=== PATIENT | female | born 1945 | race Caucasian/White ===

== ENCOUNTER → 2017-08-15 | Outpatient (CLI) | payer MEDICARE, OTHER ==
[~2017-08-15] MED LIST: ASPI-1441 PO; FLUT16SP20 NS; LEV75 PO; PHEN120S18 PO; THYROID MEDICATION
--- NOTE | 2017-08-15 10:29 | RADIOLOGY IMAGING REPORT ---
FACILITY: [facility] - [place] PATIENT NAME: Laury Acosta : 1945 MR: [id number] V: [id number] EXAM DATE: ORDERING PHYSICIAN: ALEJO LAWLER TECHNOLOGIST: Location: [facility] Patient: Laury Acosta : 1945 Visit/Account:[id number] Date of Sevice: 08/15/2017 DEXA Scan Clinical history: Osteoporosis screening. Comparison: 03/24/2014. LUMBAR SPINE: Bone mineral density (BMD) measured in the lumbar spine correlates with a T-score of -2.4 and a Z-sco re of -0.9 which is osteopenia as defined by the World Health Organization. Degenerative changes are present in the lumbar spine which may falsely increase bone density. The corresponding risk of frac ture in the lumbar spine is increased compared with a young adult reference population. Lumbar spine bone density is essentially unchanged compared to previous. LEFT FEMORAL NECK: Bone mineral density (BMD) measured in the femoral neck correlates with a T-score of -2.8 and a Z-sco re of -1.2 which is osteoporosis as defined by the World Health Organization. Bone mineral density (BMD) measured in the femoral neck region is 0.655 g/cm2. LEFT TOTAL HIP: Total hip bone mineral density (BMD) correlates with a T-score of -2.1 and a Z-score of -0.1 which is normal as defined by the World Health Organization. Total hip bone density has decreased by less t renteria 1% compared to previous. The corresponding risk of fracture in the hip is increased compared with a young adult [facility] IMPRESSION: 1. Lumbar spine: Osteopenia. Lumbar spine bone density is essentially unchanged compared to previo us. 2. Left femoral neck: Osteoporosis. 3. Left femoral neck: Bone Mineral Density is 0.655 g/cm2. 4. Left total hip: Osteopenia. Total hip bone density has decreased by less than 1% compared to pr evious. FRAX WHO Fracture Risk Assessment Tool link: <http://www.shef.ac.uk/FRAX/tool.jsp?locationValue=9> PLEASE NOTE: 1) The World Health Organization defines low BMD as follows: T-score Normal > -1 Osteopenia < -1 and > -2.5 Osteoporosis < -2.5 without fractures Established osteoporosis < -2.5 with fractures 2) In general, you may wish to consider: Diagnosis Treatment Follow-up DEXA Normal BMD Prevention 2-3 years Osteopenia Prevention/therapy 1-2 years Osteoporosis Therapy Yearly 3) Fracture risk estimated from the T-score is more accurate for vertebral fractures (often spontane ous) than for hip fractures. Report Dictated By: Jose Guzman MD at 08/15/2017 10:19 AM Report E-Signed By: Jose Guzman MD at 08/15/2017 10:24 AM WSN:[id number]
--- NOTE | 2017-08-16 08:37 | RADIOLOGY IMAGING REPORT ---
FACILITY: PATIENT NAME: MAREK GUZMÁN : [id number] MR: [id number] V: [id number] EXAM DATE: ORDERING PHYSICIAN: ALEJO LAWLER TECHNOLOGIST: Georgette Chua PROCEDURE:BILATERAL DIGITAL SCREENING MAMMOGRAM WITH CAD ASSISTED INTERPRETATION & 3D TOMOSYNTHESIS COMPARISON:Prior mammograms 02/15/16, 04/03/14, 03/24/14, 03/19/13, 03/12/12. INDICATIONS:SCREENING FINDINGS: Mildly heterogeneous fibroglandular tissue is seen throughout the breasts. The parenchymal pattern has remained stable allowing for difference in mammographic technique & patient positioning. There is no evidence of malignant appearing mass, malignant appearing calcifications or other secondary sign of malignancy in either breast. DIAGNOSTIC CATEGORY 1--NEGATIVE. RECOMMENDATIONS: ROUTINE MAMMOGRAM AND CLINICAL EVALUATION. IMPRESSION: BIRADS 1: Negative No significant abnormality is seen. Dictated by: Gail Unger M.D. on 08/15/2017 at 17:32 Transcribed by: ADRIEL on 08/16/2017 at 8:18 Approved by: Gail Unger M.D. on 08/16/2017 at 8:36 [facility]
== END ==
LOC: MAMO 02:19
PROVIDERS: ATTEND Obstetrics & Gynecology
DX: Z13.820 Encounter for screening for osteoporosis (principal); Z12.31 Encounter for screening mammogram for malignant neoplasm of breast; M85.88 Other specified disorders of bone density and structure, other site; M81.0 Age-related osteoporosis without current pathological fracture
CPT/HCPCS: 77063; 77067; 77080

== ENCOUNTER 2017-10-04 13:22 | Outpatient (RCR) | payer MEDICARE, OTHER ==
[~2017-10-04] VITALS: Ht 154.9 cm; Wt 70.3 kg
--- NOTE | 2017-10-04 15:16 | Medical Nutrition Therapy ---
Nutrition Anthropometrics Height (Inches): 61 Weight (Pounds): 155 (stated) BMI: 29.3 Avery Nutrition Score: Avery Nutrition Risk Score: Dietary Referral Nutrition Risk Factors: Nutrition Risk Comment: Nutrition/Food History Breakfast: 1 egg, 1/2 lg bagel, 1/2 banana, 1/2c blueberries Lunch: cheese & crackers or veggie and PB or 2 oreos and fruit Dinner: 3-4 oz grilled meat- usually beef, veg, 1/2 c starch Nutritional Education Nutrition Education Topic: Diabetic Nutrition Learning Readiness: Interested Teaching Methods: Discussion, Handout, Demonstration Response to Teaching: Verbalize understanding Teaching Recipient: Patient, Significant Other Nutrition Counseling: Pt has A1C of 6.1. Discussed how to maintain or decrease A1C. Pt states occasionally will exercise but no routine weekly exercise. BMI in upper end of overwt range. Encourged 7-10% wt loss and add exercise with goal of minimum of 150min/week. Pt states past 6 months has been stressful r/t family illness and deaths. Discussed how stress can rainse BG. Discussed stress relief with exercise, meditation,yoga. Pt had HDL within desired range but high LDL and cholesterol. Incorportated heart healthy diet with diabetic. Provided meal plan of 1200- 1400 kcal that should help with wt loss. Limiting CHO to 2 sevings/meal, 3-4 oz lean meat, 1 mono or polyunsatureded fat/meal and unlimited veg. Discussed diabetic classes but pt will try meal plan first. Nutrition Monitoring & Eval RD Patient Assessment Time: [address] Assessment Type: RD Education Nutritional Comment: Provided 60 minutes MNT for prediabetes jerad hypercholesterolemia dx. Copies To Copies to: PAULETTE TAVARES BETH Oct 04, 2017 15:16
== END 2017-10-19 07:55 | disposition home or self-care (01) ==
LOC: DIET 13:22
PROVIDERS: ATTEND Physician Assistant
DX: R73.09 Other abnormal glucose (principal)
CPT/HCPCS: 97802

== ENCOUNTER → 2018-11-12 | Outpatient (CLI) | payer MEDICARE, OTHER ==
--- NOTE | 2018-11-13 09:57 | RADIOLOGY IMAGING REPORT ---
FACILITY: [facility] PATIENT NAME: MAREK GUZMÁN : [id number] MR: [id number] V: [id number] EXAM DATE: ORDERING PHYSICIAN: PAULETTE TAVARES TECHNOLOGIST: Georgette Chua PROCEDURE: BILATERAL DIGITAL SCREENING MAMMOGRAM WITH CAD ASSISTED INTERPRETATION & 3D TOMOSYNTHESIS. REASON FOR STUDY: Screening. FAMILY HISTORY OF BREAST CANCER: None. BREAST PROCEDURES/TREATMENTS: None. COMPARISON: 08/15/17, 02/15/16, 04/03/14, 03/24/14, 03/19/13. VIEWS OBTAINED: Bilateral 2D & 3D full field CC & MLO projections. BREAST DENSITY: There are scattered areas of fibroglandular density throughout the breasts. MAMMOGRAM FINDINGS: The parenchymal pattern has remained stable allowing for difference in mammographic technique & patient positioning. IMPRESSION: BIRADS 1: Negative. DIAGNOSTIC CATEGORY 1--NEGATIVE. RECOMMENDATIONS: ROUTINE MAMMOGRAM AND CLINICAL EVALUATION. Dictated by: Gail Unger M.D. on 11/12/2018 at 16:29 Transcribed by: ADRIEL on 11/13/2018 at 8:40 Approved by: Gail Unger M.D. on 11/13/2018 at 9:52 [facility]
== END ==
LOC: MAMO 00:33
PROVIDERS: ATTEND Physician Assistant
DX: Z12.31 Encounter for screening mammogram for malignant neoplasm of breast (principal)
CPT/HCPCS: 77063; 77067